=== PATIENT | female | born 1985 | race Caucasian/White ===

== ENCOUNTER 2017-01-01 20:52 | Emergency (ER) | payer OTHER ==
[~2017-01-01] VITALS: Ht 162.6 cm; Wt 70.3 kg
--- NOTE | ~2017-01-01 | CR133 ---
[facility]. [facility] A Service of [facility] & [facility] RADIOLOGY TEXT RESULTS PATIENT: MIGUELINA QUINTANILLA LOCATION: SED : 87 UNIT #: [id number] AGE: [address]: OSVALDO RUIZ SEX: F ORDER DR: [id number] [place] [id number] E MR#: [id number] Acc #: [id number] NAME: MIGUELINA QUINTANILLA : 1985 SEX: F STUDY DATE/TIME: 01/01/2017 22:10 UNIT: SED ROOM: STUDY DESCRIPTION: CR Forearm 2 View Rt Attending Physician: Osvaldo Ruiz R.N. Ordering Physician: Physician Non-Staff MEDICAL IMAGING REPORT This report is preliminary unless electronic signature is present. EXAM Right forearm 2 views. HISTORY Arm pain. Hit arm on door today. FINDINGS AP and lateral views of the right forearm show no evidence of fracture or destructive bone lesion. No periosteal elevation is seen. No radiodense foreign bodies are noted. Adjacent soft tissue structures are normal. IMPRESSION Normal right forearm. Dictated by... Ervin Garibay M.D. THIS IS AN ELECTRONICALLY VERIFIED REPORT Ervin Garibay M.D. at 01/02/2017 3:38 PM MIRELA/swati TD: 01/02/2017 12:05 JOB #: [id number] MEDICAL IMAGING REPORT Page 1 of 1
[2017-01-01] MEDS ORDERED: BIRTH CONTROL PILL (21:21)
== END 2017-01-01 22:51 | disposition home or self-care (01) ==
LOC: SED 20:52
DX: S50.11XA Contusion of right forearm, initial encounter (principal); W22.8XXA Striking against or struck by other objects, initial encounter; Y93.02 Activity, running; Y92.69 Other specified industrial and construction area as the place of occurrence of the external cause; Y99.0 Civilian activity done for income or pay
CPT/HCPCS: 73090; 84703; 99283